=== PATIENT | female | born 1955 | race Two or more races ===

== ENCOUNTER → 2018-12-24 | Outpatient (CLI) | payer OTHER | END | disposition home or self-care (01) | LOC: SONOGRAMA 12-17 12:28 | DX: D05.12 Intraductal carcinoma in situ of left breast (principal); N63.21 Unspecified lump in the left breast, upper outer quadrant; N63.31 Unspecified lump in axillary tail of the right breast ==

== ENCOUNTER 2019-12-06 06:46 | Day surgery (SDC) | payer OTHER ==
[~2019-12-06 06:46] MED LIST: ATACAND32 MG PO; ECOTRIN81 MG PO; HYDROCHLOROTHIA25 MG PO; LIPITOR40 MG PO; PROTONIX40 MG PO
== END 2019-12-06 18:00 | disposition home or self-care (01) ==
LOC: CIR.AMB 06:46
PROVIDERS: ATTEND Surgery
DX: D05.12 Intraductal carcinoma in situ of left breast (principal); Z20.828 Contact with and (suspected) exposure to other viral communicable diseases